=== PATIENT | male | born 1990 | race Caucasian/White ===

== ENCOUNTER 2017-02-18 19:31 | Emergency (ER) | payer OTHER ==
[~2017-02-18] VITALS: Ht 180.3 cm; Wt 98.3 kg
[~2017-02-18 19:31] MED LIST: NAPROSYN500 MG PO; TRAMADOL HCL50 MG PO
[2017-02-18 20:44] LABS: HEMATOCRIT 46.3 % (38.0-50.0); MCH 29.7 PG (29.0-34.0); MCHC 33.9 G/DL (30.0-36.0); MCV 87.7 FL (86-99); MEAN PLAT.VOLUME 11.3 uM^3 (9.0-12.4); PLATELET COUNT 225 K/uL (156-360); RBC DIS.WIDTH-CV 12.6 % (11.8-14.6); RBC DIS.WIDTH-SD 40.7 % (39-53); RED BLOOD COUNT 5.28 M/uL (4.00-5.50); WHITE BLOOD COUNT 8.8 K/uL (4.1-10.2)
[2017-02-18 20:55] LABS: CHLORIDE 104 mEq/L (99-109); POTASSIUM 3.8 mEq/L (3.7-5.4); SODIUM 138 mEq/L (136-147)
[2017-02-18 20:57] LABS: GLUCOSE 93 mg/dL (70-99)
[2017-02-18] MEDS ORDERED: AFRIN,GENASAL D15 ML BOTH NARES (20:57)
[2017-02-18 20:58] LABS: ANION GAP 10 MEQ/L (2-14)
[2017-02-18 20:59] LABS: TOTAL BILIRUBIN 0.4 mg/dL (0.0-1.0)
[2017-02-18 21:00] LABS: ALKALINE PHOSPHATASE 51 IU/L (3-129)
[2017-02-18 21:01] LABS: GFR ESTIMATE (CALCULATED) > 59 mL/min/
[2017-02-18 21:02] LABS: UREA NITROGEN (BUN) 12 mg/dL (9-23)
[2017-02-18 21:04] LABS: LIPASE 18 U/L (1.0-51.0)
[2017-02-18 21:21] VITALS: BP 138/97
== END 2017-02-18 21:27 | disposition home or self-care (01) ==
LOC: EME 19:31
PROVIDERS: Nurse Practitioner Family
DX: K62.5 Hemorrhage of anus and rectum (principal); K64.8 Other hemorrhoids; J32.9 Chronic sinusitis, unspecified
CPT/HCPCS: 80053; 83690; 85027; 99281; 99283